=== PATIENT | female | born 1955 | race Caucasian/White ===

== ENCOUNTER 2021-11-27 19:03 | Observation (INO) ==
[2021-11-27] MEDS ORDERED: ASPIRIN CHEW 81 MG TABLET PO ONE (19:35)
[2021-11-27] MEDS ORDERED: NITROGLYCERIN SL 0.4 MG TABLET SL ONE (19:35)
[2021-11-27] MEDS ORDERED: ASPIRIN CHEW 81 MG TABLET PO STA (19:36)
[2021-11-27] MEDS ORDERED: NITROGLYCERIN SL 0.4 MG TABLET SL STA (19:36)
[2021-11-27 19:39] LABS: Basophils # 0.1 10*3/uL (0.0-0.2); Basophils % 0.9 % (0.0-0.8); Eosinophils # 0.3 10*3/uL (0.0-0.87); Eosinophils % 3.5 % (0.00-10.9); Hematocrit 31.5 VOL% (35.7-47.0); Hemoglobin 10.3 GM/DL (12.0-16.0); Immature Granulocytes % 0.5 %; Immature Granulocytes Absolute 0.04 #; Lymphocytes % 34.7 % (21.3-54.2); Mean Corpuscular HGB Conc 32.7 GM/DL (32-36); Mean Corpuscular Volume 93.2 FL (87-102); Mean Platelet Volume 11.3 FL (9.6-12.0); Monocytes # 0.6 10*3/uL (0.11-0.8); Monocytes % 6.4 % (1.7-12.7); Platelet Count 264 T/CUMM (130-400); Red Blood Count 3.38 MC/CUMM (3.8-5.5); Red Cell Distribution Width 14.8 % (9.3-17.3); White Blood Count 8.8 T/CUMM (4-12)
[2021-11-27 19:52] LABS: INR 0.9; Partial Thromboplastin Time 27.5 SECS (23.7-32.9)
[2021-11-27 19:56] LABS: Alanine Aminotransferase 33 U/L (13-56); Albumin 3.3 G/DL (3.4-5.0); Alkaline Phosphatase 132 U/L (45-117); Aspartate Amino Transferase 20 U/L (0-37); Bilirubin,Total < 0.39 MG/DL (0.20-1.00); Blood Urea Nitrogen 24 MG/DL (7-18); Carbon Dioxide 28 MMOL/L (21-32); Chloride 107 MMOL/L (98-107); Glucose 168 MG/DL (74-106); Osmolality,Calculated 284.5 MOS/KG (273-304); Potassium 4.1 MMOL/L (3.5-5.1); Sodium 139 MMOL/L (136-145); Total Protein 6.9 G/DL (6.4-8.2)
[2021-11-27] MEDS ORDERED: DEXTROSE 10% 250 ML BAG IV PRN (21:15)
[2021-11-27] MEDS ORDERED: GLUCAGON 1 MG VIAL IM PRN (21:15)
[2021-11-27] MEDS ORDERED: MORPHINE 2 MG/1 ML SYRINGE IV PRN (21:23)
[2021-11-27] MEDS ORDERED: NITROGLYCERIN SL 0.4 MG TABLET SL PRN (21:23)
[2021-11-27] MEDS ORDERED: ACETAMINOPHEN 325 MG TABLET PO PRN (21:23)
[2021-11-27] MEDS ORDERED: ONDANSETRON 4 MG/2 ML VIAL IV PRN (21:23)
[2021-11-27] MEDS ORDERED: GABAPENTIN 300 MG CAPSULE PO SCH (22:00)
[2021-11-27] MEDS ORDERED: BACLOFEN 10 MG TABLET PO SCH (22:00)
[2021-11-28 01:57] LABS: Basophils # 0.1 10*3/uL (0.0-0.2); Basophils % 0.8 % (0.0-0.8); Eosinophils # 0.3 10*3/uL (0.0-0.87); Eosinophils % 3.9 % (0.00-10.9); Hematocrit 29.5 VOL% (35.7-47.0); Hemoglobin 9.6 GM/DL (12.0-16.0); Immature Granulocytes % 0.2 %; Immature Granulocytes Absolute 0.02 #; Lymphocytes # 3.3 10*3/uL (1.4-4.0); Mean Corpuscular HGB Conc 32.5 GM/DL (32-36); Mean Corpuscular Volume 93.7 FL (87-102); Mean Platelet Volume 11.1 FL (9.6-12.0); Monocytes # 0.5 10*3/uL (0.11-0.8); Monocytes % 5.7 % (1.7-12.7); Neutrophils % 50.4 % (38.7-73.9); Platelet Count 238 T/CUMM (130-400); Red Blood Count 3.15 MC/CUMM (3.8-5.5); Red Cell Distribution Width 14.6 % (9.3-17.3); White Blood Count 8.4 T/CUMM (4-12)
[2021-11-28 02:31] LABS: Calcium 8.4 MG/DL (8.5-10.1); Osmolality,Calculated 283.5 MOS/KG (273-304); Risk Ratio 7.8; Thyroid Stimulating Hormone 4.66 uIU/ml (0.358-3.74); VLDL Cholesterol 70.6 MG/DL
[2021-11-28] MEDS: ENOXAPARIN 40 MG/0.4 ML SYRINGE SUBCUT SCH ×2 (07:24→08:51)
[2021-11-28] MEDS ORDERED: POTASSIUM CHLORIDE 20 MEQ TABLET PO SCH (09:00)
[2021-11-28] MEDS ORDERED: ASPIRIN EC 325 MG TABLET PO SCH (09:00)
[2021-11-28] MEDS ORDERED: BISOPROLOL 5 MG TABLET PO SCH (09:00)
[2021-11-28] MEDS ORDERED: allopurinoL 300 MG TABLET PO SCH (09:00)
[2021-11-28] MEDS ORDERED: hydroCHLOROthiazide 25 MG TABLET PO SCH (09:00)
[2021-11-28] MEDS ORDERED: TERIFLUNOMIDE 7 MG PO SCH (09:00)
[2021-11-28] MEDS ORDERED: sitaGLIPtin 25 MG TABLET PO SCH (09:00)
[2021-11-28] MEDS ORDERED: amLODIPine 10 MG TABLET PO SCH (09:00)
[2021-11-28] MEDS ORDERED: PANTOPRAZOLE 40 MG TABLET PO SCH (09:00)
[2021-11-28] MEDS: INSULIN REGULAR 100 UNIT/ML SUBCUT SCH ×2 (09:02→11:18)
[2021-11-28 09:52] LABS: Folate > 24.00 NG/ML (5.38-24.0); Vitamin B12 > 2000 PG/ML (211-911)
[2021-11-28] MEDS ORDERED: hydrALAZINE 20 MG/1 ML VIAL IV PRN (10:11)
[2021-11-28 11:19] VITALS: BP 157/84
[2021-11-28] MEDS ORDERED: ATORVASTATIN 40 MG TABLET PO SCH (21:00)
== END 2021-11-28 11:58 | disposition home or self-care (01) ==
LOC: N.EDINP 19:03 → N.ED 19:03 → N.2W 22:01
PROVIDERS: ADMIT Internal Medicine; ATTEND Internal Medicine